=== PATIENT | male | born 1990 | race Caucasian/White ===

== ENCOUNTER 2018-11-06 02:06 | Emergency (ER) | payer OTHER | END 2018-11-06 09:19 | disposition home or self-care (01) | LOC: E/R 02:06 | DX: F10.920 Alcohol use, unspecified with intoxication, uncomplicated (principal); R40.2142 Coma scale, eyes open, spontaneous, at arrival to emergency department; R40.2362 Coma scale, best motor response, obeys commands, at arrival to emergency department; R40.2232 Coma scale, best verbal response, inappropriate words, at arrival to emergency department | CPT/HCPCS: 99283; Z7502 ==